=== PATIENT | female | born 1945 | race Caucasian/White ===

== ENCOUNTER 2019-05-31 08:04 | Emergency (ER) | payer MEDICARE ==
[2019-05-31] MEDS ORDERED: IPRATROPIUM/ALBUTEROL 3 ML VIAL NEB ONE (08:16)
[2019-05-31] MEDS ORDERED: methylPREDNISolone SODIUM SUC 125 MG/2 ML VIAL IM ONE (08:17)
[2019-05-31] MEDS ORDERED: methylPREDNISolone SODIUM SUC 125 MG/2 ML VIAL IV ONE (08:31)
[2019-05-31 08:41] VITALS: TEMP 99
--- NOTE | 2019-05-31 08:42 | ED.PDOC ---
History of Present Illness - General Chief Complaint: Respiratory Problem Stated Complaint: cough for 2 weeks Time Seen by Provider: 05/31/19 08:13 Source: patient - History of Present Illness Comments: 73-year-old female presents to the emergency department via EMS complaining of 2 weeks of progressive cough. With worsening symptoms over the last 2 days. She reports chest pain only with coughing and denies any significant shortness of breath. 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 She denies any fever but has had subjective chills. She denies any associated nausea, vomiting or diarrhea. She is also complaining of an acute exacerbation of her peripheral neuropathy and significant pain in both feet from the ankles down. The pain has been so severe that she is not been walking and is just been sitting in her recliner for the last 2 days wearing a depends so that she does not have to get up to use the restroom. She denies any injury and has had neuropathy for several years and takes 800 mg of gabapentin twice daily for it. She has been taking her normal medications but this has not been helping. She currently rates her pain as 10/10 in severity and it is significantly worsened with palpation. She denies any injuries or any other complaints at this time. Allergies/Adverse Reactions: Allergies Morphine Allergy (Verified 05/31/19 08:41) Penicillins Allergy (Verified 05/31/19 08:41) Tramadol Allergy (Verified 05/31/19 08:41) Home Medications: Ambulatory Orders Albuterol Inhaler [Ventolin Hfa Inhaler] 1 - 2 puff INH Q4H PRN #1 inh 05/31/19 Azithromycin [Zithromax Z-Casey] 250 mg PO DAILY #6 tab 05/31/19 Prednisone 50 mg PO DAILY #5 tab 05/31/19 Promethazine Tab [Phenergan Tablet] 25 mg PO Q6H PRN #15 tab 05/31/19 Review of Systems - Review of Systems Constitutional: Denies: chills, fever EENTM: States: nose congestion. Denies: throat pain Respiratory: States: cough. Denies: short of breath Cardiology: States: chest pain - due to cough. Denies: edema, palpitations Gastrointestinal/Abdominal: Denies: diarrhea, nausea, vomiting Genitourinary: Denies: dysuria, frequency Musculoskeletal: States: muscle pain - Bilat feet from the ankles down. Denies: back pain, joint swelling Skin: Denies: lesions, rash Neurological: States: other - burning pain to bilat feet. Denies: headache, weakness Family Medical History - Family History Mother Living Status: Hx Family Diabetes: Yes Physical Exam - Physical Exam General Appearance: Alert, Well Developed, Well Nourished Eye Exam: bilateral normal ENT Exam: normal ENT inspection, pharynx normal Neck: full range of motion, trachea midline Respiratory: no respiratory distress, no accessory muscle use, rhonchi, wheezing Cardiovascular/Chest: normal peripheral pulses, no edema, tachycardia Gastrointestinal/Abdominal: non tender, soft Extremity: normal inspection, no pedal edema, other - PT will not allow palpation from the ankle down on either foot. No tenderness above the ankle Neurologic: no motor/sensory deficits, alert, oriented x 3 Skin Exam: normal color, warm/dry Comments: Vital Signs 05/31/19 08:36 Temperature 99.0 F Pulse Rate [ 128 H monitor] Respiratory 22 Rate Blood Pressure 140/79 [ra] O2 Sat by Pulse 90 L Oximetry Progress - Progress Progress: 05/31/19 11:26 Patient recheck: All lab and imaging results were discussed with the patient along with plan for discharge home. She was encouraged to increase her home gabapentin dose back to 800 mg 3 times daily which she states was changed recently because of the increased dose upsetting her stomach. We discussed I will give her a prescription for nausea medicine in case this happens. For her cough and bronchitis she will be discharged with a prescription for prednisone as well as albuterol to use every 4 hours as needed. We'll also put her on a course of azithromycin. She was encouraged to follow-up with her primary care physician as soon as possible and to return to the emergency department for any worsening of symptoms or other concerns. The patient has voiced understanding and agrees with the treatment plan. - Results/Orders Results/Orders: 8:26 AM EKG interpreted by myself as sinus tachycardia rate 123. Left axis deviation. Normal intervals. No ST elevation and nonspecific ST-T changes. 05/31/19 09:42 BLOOD CULTURE Stat Laboratory Results - last 24 hr 05/31/19 05/31/19 08:30 08:46 WBC 15.4 H RBC 5.24 Hgb 13.5 Hct 41.1 MCV 78.5 L MCH 25.6 L MCHC 32.7 L RDW 13.9 Plt Count 416 H MPV 9.0 Absolute Neuts (auto) 11.30 H Absolute Lymphs (auto) 2.60 Absolute Monos (auto) 1.20 H Absolute Eos (auto) 0.10 Absolute Basos (auto) 0.20 H Neutrophils % 73.0 Lymphocytes % 17.2 L Monocytes % 8.0 Eosinophils % 0.4 L Basophils % 1.4 PT 10.8 INR 1.09 PTT (SP) 25.0 Sodium 138 Potassium 3.3 L Chloride 95 L Carbon Dioxide 25 Anion Gap 21.3 H BUN 24 H Creatinine 1.30 BUN/Creatinine Ratio 18.5 Random Glucose 258 H Serum Osmolality 288.6 Lactic Acid 1.9 Calcium 9.4 Magnesium 1.8 Creatine Kinase 30 CK-MB (CK-2) 0.6 CK-MB (CK-2) % Not Reportable Troponin I 0.03 Portable CXR: IMPRESSION: Single AP portable upright view of the chest shows cardiac silhouette and pulmonary vasculature to be within normal limits. Lungs are normally aerated and clear. Moderate elevation of the right hemidiaphragm is seen. No obvious pleural effusion or pneumothorax is seen. Surgical clips in the left axilla are identified with surgical clips in the central lower neck to upper mediastinum with ACDF changes to the cervical spine. Electronically signed by: Adonis Cabello MD 05/31/2019 8:43 AM MEDICATION NURSE Departure - Departure Clinical Impression: Bronchitis, Neuropathy Time of Disposition: 12:12 Disposition: Discharge to Home or Self Care Condition: Fair Departure Forms: ED Discharge - Pt. Copy, Patient Portal Self Enrollment Instructions: Acute Bronchitis, Peripheral Neuropathy Referrals: [facility] [Provider Group] - 1-2 Days Prescriptions: Albuterol Inhaler [Ventolin Hfa Inhaler] 1 - 2 puff INH Q4H PRN #1 inh PRN Reason: sob Azithromycin [Zithromax Z-Casey] 250 mg PO DAILY #6 tab Prednisone 50 mg PO DAILY #5 tab Promethazine Tab [Phenergan Tablet] 25 mg PO Q6H PRN #15 tab PRN Reason: Nausea Home Medications: Ambulatory Orders Albuterol Inhaler [Ventolin Hfa Inhaler] 1 - 2 puff INH Q4H PRN #1 inh 05/31/19 Azithromycin [Zithromax Z-Casey] 250 mg PO DAILY #6 tab 05/31/19 Prednisone 50 mg PO DAILY #5 tab 05/31/19 Promethazine Tab [Phenergan Tablet] 25 mg PO Q6H PRN #15 tab 05/31/19 Additional Instructions: Take all medications as prescribed. Call your physician tomorrow to schedule follow-up appointment as soon as possible. Return to emergency department for any significant worsening of symptoms or other concerns.
[2019-05-31] MEDS ORDERED: fentaNYL CITRATE INJ 50 MCG/ML AMP IV ONE (08:59)
[2019-05-31 12:38] VITALS: O2SAT 91
[2019-05-31 12:39] VITALS: BP 108/71
== END 2019-05-31 12:25 | disposition home or self-care (01) ==
LOC: ER 08:04
DX: J40 Bronchitis, not specified as acute or chronic (principal); G62.9 Polyneuropathy, unspecified; R00.0 Tachycardia, unspecified
CPT/HCPCS: 36415; 71045; 80048; 82550; 82553; 83605; 84484; 85025; 85610; 85730; 87040; 93005; 94640; J2930; J3010; J7620

== ENCOUNTER → 2019-12-19 | Outpatient (CLI) | payer MEDICARE ==
--- NOTE | 2019-12-20 12:46 | MRI ---
EXAM DESCRIPTION: Cervical Spine: MRI. CLINICAL HISTORY: 74 years Female RADICULOPATHY COMPARISON: None. TECHNIQUE: Multiplanar, high-field MRI, multiple sequences, non-contrast Cervical spine. FINDINGS: C2-C3: Rudimentary with partial fusion periphery. No canal or foraminal stenosis. No marrow edema. C3-C4: Minimal disc space loss with anterior endplate ridging and spurs. Posterior broad-based disc bulge and midline protrusion more to the right of midline, impressing on the cord. Minimal cord edema indicated by hyperintense T2 and STIR cord signal Bilateral uncinate spurs. Mild canal stenosis. Bilateral neural foraminal stenosis. C4-C6: ACDF: Magnetic susceptibility artifact. No abnormal marrow edema around the hardware and no abnormal soft tissue edema or paravertebral soft tissue edema. No fluid in the epidural space or cord. Partial bony fusion of the interbody disc spaces. Minimal canal and neural foraminal narrowing at C4-C5. Minimal canal narrowing at C5-C6 but mild left neural foraminal stenosis secondary to endplate spurs. Moderate narrowing on the right. Facet joints are unremarkable at both levels. C6-C7 disc desiccation with tiny posterior bulge. Concavity in the inferior C6 endplate. Posterior ligament thickening and bilateral foraminal arthrosis and hypertrophy with borderline canal stenosis. Moderate to severe narrowing of the bilateral neural foramina, more on the right C7-T1: Disc desiccation with minimal disc space loss. No significant bulging. Trace anterolisthesis. Bilateral facet hypertrophic arthrosis. Bilateral moderate to severe neural foraminal narrowing. Normal signal in the T1-T2 disc with no bulging. Disc space preserved. Canal and neural foramina are patent. Facet joints are negative. Well-circumscribed hyperintense T1 and T2 hemangioma in the T2 vertebral body. Spinal alignment is straightened at the level of fusion. No cord compression or cord edema. Atlantoaxial joint mild hypertrophic arthrosis. Base of the cerebellar tonsils is at the level of the foramen magnum. Paravertebral soft tissues are unremarkable. Vertebral bodies are not compressed at any level. Otherwise normal marrow signal in the remaining vertebral bodies and the posterior elements. IMPRESSION: 1. Protrusion of the C3-4 disc impressing on the cord with minimal cord edema. Bilateral neural foraminal stenosis. Correlate for bilateral C4 radiculopathy. 2. ACDF C4-C6 with no hardware complications. Left C5-C6 neural foraminal stenosis secondary to endplate spurs. Correlate for left C6 radiculopathy. 3. Moderate to severe bilateral neural foraminal narrowing at C6-C7 with borderline canal stenosis. Bilateral moderate to severe neural foraminal narrowing also at C7-T1. Electronically signed by: Mark Swartz MD 12/20/2019 12:45 PM CDT
== END ==
LOC: MRI 08:30
PROVIDERS: ATTEND General Practice
DX: M54.12 Radiculopathy, cervical region (principal); M50.21 Other cervical disc displacement, high cervical region; M48.02 Spinal stenosis, cervical region; M48.03 Spinal stenosis, cervicothoracic region; M25.78 Osteophyte, vertebrae; R60.9 Edema, unspecified; Z98.1 Arthrodesis status

== ENCOUNTER → 2020-02-25 | Outpatient (CLI) | payer MEDICARE ==
--- NOTE | 2020-02-25 15:31 | CT ---
EXAM DESCRIPTION: Cervical Spine CLINICAL HISTORY: CERVICAL SPINE. Pain. COMPARISON: MRI cervical spine 12/19/2019. TECHNIQUE: Cervical CT is performed with thin-section axial imaging. MPRs are created and reviewed as well. This exam was performed according to our departmental dose-optimization program, which includes automated exposure control, adjustment of the mA and/or kV according to patient size and/or use of iterative reconstruction technique. FINDINGS: Changes of two level ACDF (anterior cervical discectomy and fusion) at C4-C5 and C5-C6 are noted. No hardware fracture or displacement. There is trace degenerative anterolisthesis of C6 on C7 (by approximately 1 mm). The cervical spinal alignment is otherwise intact. The vertebral body heights are maintained. No acute displaced fracture or significantly appearing subluxation is seen. The craniocervical junction is intact. The atlantodental dental interval is intact. Central canal narrowing is better characterized on recent MRI cervical spine. At C3-C4 bilateral uncinate process and facet hypertrophy contributes to severe right and moderate to severe left neuroforaminal narrowing. At C5-C6 intervertebral disc height loss and bulky facet hypertrophy results in at least moderate right neuroforaminal narrowing. The prevertebral soft tissues are within normal limits. IMPRESSION: 1. Changes of C4-C5 and C5-C6 ACDF without hardware complication. 2. Significant neuroforaminal narrowing at C3-C4 and C5-C6 as above. Electronically signed by: Spencer Pagan DO 02/25/2020 3:29 PM CDT
== END ==
LOC: CT 11:03
PROVIDERS: ATTEND Neurological Surgery
DX: M48.02 Spinal stenosis, cervical region (principal); Z98.1 Arthrodesis status